=== PATIENT | male | born 1955 | race Hispanic/Latino ===

== ENCOUNTER 2024-06-19 14:30 | Observation (INO) | payer MEDICARE ==
[~2024-06-19] VITALS: Ht 162.6 cm; Wt 81.2 kg
[2024-06-19 15:07] VITALS: TEMP 97.9
[2024-06-19] MEDS ORDERED: SODIUM CHLORIDE FLUSH 10 ML SYR IV PRN (15:15)
[2024-06-19 15:24] LABS: BASOPHILS % 0.3 % (0.0-1.0); EOSINOPHILS % 0.6 % (0.0-6.0); HEMATOCRIT 41.8 % (38.2-49.6); HEMOGLOBIN 14.4 g/dL (14.0-18.0); LYMPHOCYTES # (AUTO) 1.5 (1.0-3.2); LYMPHOCYTES % 23.8 % (18.0-39.1); MEAN CORPUSCULAR HGB CONC 34.4 g/dL (31-35); MEAN CORPUSCULAR VOLUME 84.3 fL (81-99); MONOCYTES # (AUTO) 0.6 (0.2-0.8); MONOCYTES % 9.8 % (4.4-11.3); NEUTROPHILS # (AUTO) 4.1 (2.1-6.9); NEUTROPHILS % 65.2 % (38.7-80.0); PLATELET COUNT 283 x10e3/uL (140-360); RED BLOOD COUNT 4.96 x10e6/uL (4.3-5.7); RED CELL DISTRIBUTION WIDTH 13.7 % (11.7-14.4); WHITE BLOOD COUNT 6.34 x10e3/uL (4.8-10.8)
[2024-06-19 15:41] LABS: INR 0.96; PROTHROMBIN TIME 13.4 seconds (11.9-14.5)
[2024-06-19 15:42] LABS: PARTIAL THROMBOPLASTIN TIME 30.1 seconds (23.8-35.5)
[2024-06-19 15:50] LABS: ALANINE AMINOTRANSFERASE 12 IU/L (0-55); ALBUMIN 3.8 g/dL (3.5-5.0); ALBUMIN/GLOBULIN RATIO 1.3 (0.8-2.0); ALKALINE PHOSPHATASE 78 IU/L (40-150); ANION GAP 16.3 mmol/L (8-16); BILIRUBIN,TOTAL 0.4 mg/dL (0.2-1.2); BLOOD UREA NITROGEN 14 mg/dL (7-26); BUN/CREATININE RATIO 13 (6-25); CALCIUM 9.4 mg/dL (8.4-10.2); CARBON DIOXIDE 20 mmol/L (22-29); CHLORIDE 105 mmol/L (98-107); CREATININE, SERUM 1.06 mg/dL (0.72-1.25); EST GLOMERULAR FILTRATION RATE 76 ML/MIN (>=60); POTASSIUM 4.3 mmol/L (3.5-5.1); SODIUM 137 mmol/L (136-145); TOTAL PROTEIN 6.7 g/dL (6.5-8.1)
[2024-06-19 15:57] LABS: GLUCOSE 470 mg/dL (74-118)
[2024-06-19 15:58] LABS: TROPONIN I < 0.001 ng/mL (0-0.300)
[2024-06-19] MEDS ORDERED: ONDANSETRON HCL INJ 2MG/ML 2ML 2 MG/ML VIAL IV PRN (17:30)
[2024-06-19] MEDS: SODIUM CHLORIDE 0.9% 1000ML 1,000 ML IV ONE (17:36)
[2024-06-19] MEDS: SODIUM CHLORIDE 0.9% 1000ML 1,000 ML IV SCH (17:36)
[2024-06-19 19:17] VITALS: PULSE 65; RESP 18
[2024-06-19 20:06] VITALS: BP 140/69; PULSE 71; RESP 20; TEMP 98.4; O2SAT 96
[2024-06-19] MEDS: INSULIN LISPRO 100 UNIT/1 ML 3ML VIAL SQ SCH (20:59)
[2024-06-19] MEDS ORDERED: DEXTROSE 50% SYRINGE 50 ML IV PRN (21:00)
[2024-06-19 21:53] VITALS: BP 140/69; PULSE 71; RESP 20; TEMP 98.4; O2SAT 96
[2024-06-19] MEDS ORDERED: LISINOPRIL5 MG PO (21:59)
[2024-06-19] MEDS ORDERED: PIOGLITAZONE HC45 MG PO (21:59)
[2024-06-19] MEDS ORDERED: METFORMIN PO (21:59)
[2024-06-19] MEDS ORDERED: ALTOPREV40 MG PO (21:59)
[2024-06-19] MEDS ORDERED: NEURONTIN300 MG PO (21:59)
[2024-06-19] MEDS ORDERED: GLIPIZIDE PO (21:59)
[2024-06-20] VITALS (7 sets, daily range): BP systolic 133–152; BP diastolic 65–75; PULSE 69–76; RESP 19–20; TEMP 98–98.9; O2SAT 98–100
[2024-06-20 00:43] LABS: TROPONIN I 0.001 ng/mL (0-0.300)
[2024-06-20 05:48] LABS: BASOPHILS % 0.3 % (0.0-1.0); EOSINOPHILS # (AUTO) 0.1 (0.0-0.4); EOSINOPHILS % 1.5 % (0.0-6.0); HEMATOCRIT 40.9 % (38.2-49.6); LYMPHOCYTES # (AUTO) 1.7 (1.0-3.2); LYMPHOCYTES % 23.9 % (18.0-39.1); MEAN CORPUSCULAR HEMOGLOBIN 29.3 pg (28-32); MEAN CORPUSCULAR HGB CONC 34.2 g/dL (31-35); MEAN CORPUSCULAR VOLUME 85.6 fL (81-99); MONOCYTES # (AUTO) 0.8 (0.2-0.8); MONOCYTES % 10.6 % (4.4-11.3); NEUTROPHILS # (AUTO) 4.5 (2.1-6.9); NEUTROPHILS % 63.3 % (38.7-80.0); PLATELET COUNT 275 x10e3/uL (140-360); RED BLOOD COUNT 4.78 x10e6/uL (4.3-5.7); RED CELL DISTRIBUTION WIDTH 13.7 % (11.7-14.4); WHITE BLOOD COUNT 7.15 x10e3/uL (4.8-10.8)
[2024-06-20 06:32] LABS: ALBUMIN 3.3 g/dL (3.5-5.0); ALBUMIN/GLOBULIN RATIO 1.2 (0.8-2.0); ANION GAP 10.5 mmol/L (8-16); BILIRUBIN,TOTAL 0.4 mg/dL (0.2-1.2); CALCIUM 8.6 mg/dL (8.4-10.2); CREATININE, SERUM 0.82 mg/dL (0.72-1.25); POTASSIUM 4.5 mmol/L (3.5-5.1)
[2024-06-20 06:47] LABS: CREATINE KINASE 119 IU/L (30-200)
[2024-06-20 06:59] LABS: TROPONIN I < 0.001 ng/mL (0-0.300)
[2024-06-20 08:53] LABS: CHOL/HDL RATIO 3.5 (3.9-4.7)
[2024-06-20] MEDS: GABAPENTIN 300 MG CAP PO SCH (09:12)
[2024-06-20] MEDS: PIOGLITAZONE HCL 45 MG TAB PO SCH (09:12)
[2024-06-20] MEDS: LISINOPRIL 2.5 MG TAB PO SCH (09:12)
[2024-06-20] MEDS: SIMVASTATIN 20 MG TAB PO SCH (20:53)
[2024-06-20] MEDS: ACETAMINOPHEN 325 MG TAB PO PRN (20:54)
[2024-06-21] VITALS: BP 129/68; PULSE 68; RESP 20; TEMP 98.7; O2SAT 100
[2024-06-21 04:00] VITALS: BP 167/99; PULSE 65; RESP 20; TEMP 98; O2SAT 100
[2024-06-21 08:00] VITALS: BP 157/62; PULSE 65; RESP 20; TEMP 98; O2SAT 100
[2024-06-21 08:05] VITALS: BP 157/72; PULSE 68; RESP 21; TEMP 97.9; O2SAT 96
[2024-06-21 11:34] VITALS: BP 160/75; PULSE 83; RESP 17; TEMP 97.9; O2SAT 100
[2024-06-21 15:30] VITALS: BP 152/74; PULSE 98; RESP 18; TEMP 97.9; O2SAT 98
[2024-06-21] MEDS ORDERED: LISINOPRIL10 MG PO (17:09)
== END 2024-06-21 17:58 | disposition home or self-care (01) ==
LOC: ER 15:12 → ERHOLD 17:20 → MED/SURG2 20:32
PROVIDERS: ADMIT Internal Medicine; ATTEND Internal Medicine
DX: E11.65 Type 2 diabetes mellitus with hyperglycemia (principal); Z79.84 Long term (current) use of oral hypoglycemic drugs; I10 Essential (primary) hypertension; R42 Dizziness and giddiness; M54.2 Cervicalgia
CPT/HCPCS: 36415 ×3; 70450; 71046; 80053 ×2; 80061; 82550 ×2; 82948 ×3; 83036; 83880; 84484 ×2; 85025 ×2; 85610; 85730; 93005 ×2; 99284; G0378 ×3; J7030 ×3

== ENCOUNTER → 2024-07-06 | Outpatient (REF) | payer MEDICARE ==
[~2024-07-06] MED LIST: ALTOPREV40 MG PO; GLIPIZIDE PO; LISINOPRIL10 MG PO; LISINOPRIL5 MG PO; METFORMIN PO; NEURONTIN300 MG PO; PIOGLITAZONE HC45 MG PO
== END ==
LOC: US 14:40
PROVIDERS: ATTEND Urology
DX: N50.82 Scrotal pain (principal); N43.3 Hydrocele, unspecified
CPT/HCPCS: 76870; 93976

== ENCOUNTER → 2024-07-12 | Outpatient (REF) | payer MEDICARE ==
[~2024-07-12] MED LIST changes: +IOPAMIDOL 370 MG/ML 100 ML INFUS..BTL INJ ONE
[2024-07-12 14:11] LABS: CREATININE, SERUM 0.88 mg/dL (0.72-1.25)
== END ==
LOC: CT 12:57
PROVIDERS: ATTEND Urology
DX: N50.82 Scrotal pain (principal); N43.3 Hydrocele, unspecified
CPT/HCPCS: 36415; 74177; 82565; 84520; Q9967

== ENCOUNTER 2024-07-30 16:33 | Inpatient (IN) | payer MEDICARE ==
[~2024-07-30] VITALS: Ht 165.1 cm; Wt 104.8 kg
[~2024-07-30 16:33] MED LIST changes: -IOPAMIDOL 370 MG/ML 100 ML INFUS..BTL INJ ONE
[2024-07-30] MEDS ORDERED: ONDANSETRON HCL INJ 2MG/ML 2ML 2 MG/ML VIAL IV STA (17:02)
[2024-07-30 17:27] LABS: BASOPHILS % 0.3 % (0.0-1.0); EOSINOPHILS # (AUTO) 0.1 (0.0-0.4); EOSINOPHILS % 0.8 % (0.0-6.0); HEMATOCRIT 45.5 % (38.2-49.6); HEMOGLOBIN 15.8 g/dL (14.0-18.0); LYMPHOCYTES # (AUTO) 1.4 (1.0-3.2); LYMPHOCYTES % 21.4 % (18.0-39.1); MEAN CORPUSCULAR HEMOGLOBIN 29.5 pg (28-32); MEAN CORPUSCULAR HGB CONC 34.7 g/dL (31-35); MONOCYTES # (AUTO) 0.5 (0.2-0.8); MONOCYTES % 7.8 % (4.4-11.3); NEUTROPHILS # (AUTO) 4.4 (2.1-6.9); NEUTROPHILS % 69.4 % (38.7-80.0); PLATELET COUNT 293 x10e3/uL (140-360); RED BLOOD COUNT 5.35 x10e6/uL (4.3-5.7); RED CELL DISTRIBUTION WIDTH 13.9 % (11.7-14.4); WHITE BLOOD COUNT 6.32 x10e3/uL (4.8-10.8)
[2024-07-30 17:41] LABS: BILIRUBIN,URINE NEGATIVE (NEGATIVE); CLARITY,URINE CLEAR (CLEAR); COLOR,URINE YELLOW (YELLOW); GLUCOSE, URINE 500 (NEGATIVE); KETONES,URINE 1+ (NEGATIVE); LEUKOCYTE ESTERASE ,URINE NEGATIVE (NEGATIVE); NITRITE,URINE NEGATIVE (NEGATIVE); PH,URINE 5.5 (5 - 7); PROTEIN,URINE DIPSTICK NEGATIVE (NEGATIVE); URINE UROBILINOGEN 0.2 mg/dL (0.2 - 1)
[2024-07-30 17:49] LABS: ALBUMIN/GLOBULIN RATIO 1.1 (0.8-2.0); ANION GAP 19.2 mmol/L (8-16); BILIRUBIN,TOTAL 0.4 mg/dL (0.2-1.2); CALCIUM 9.3 mg/dL (8.4-10.2); CREATINE KINASE 64 IU/L (30-200); CREATININE, SERUM 1.22 mg/dL (0.72-1.25); LIPASE 45 U/L (8-78); POTASSIUM 4.2 mmol/L (3.5-5.1); TOTAL PROTEIN 7.6 g/dL (6.5-8.1)
[2024-07-30] MEDS: ACETAMINOPHEN 325 MG TAB PO STA (17:55)
[2024-07-30] MEDS: ONDANSETRON HCL INJ 2MG/ML 2ML 2 MG/ML VIAL IV STA (17:56)
[2024-07-30] MEDS: SODIUM CHLORIDE 0.9% 1000ML 1,000 ML IV STA ×2 (17:56)
[2024-07-30] MEDS: Morphine 4mg INJECTION 4 MG/ML INJ IV STA (17:57)
[2024-07-30 17:59] LABS: RBC,URINE 0-5 /HPF (0-5); WBC,URINE (MAN) 0-5 /HPF (0-5)
[2024-07-30] MEDS ORDERED: IOPAMIDOL 370 MG/ML 100 ML INFUS..BTL INJ ONE (17:59)
[2024-07-30 18:00] LABS: BACTERIA,URINE FEW /HPF; EPITHELIAL CELLS,URINE FEW /LPF
[2024-07-30 18:04] LABS: OTHER CRYSTALS,URINE PRESENT
[2024-07-30 18:05] LABS: TROPONIN I < 0.001 ng/mL (0-0.300)
[2024-07-30 19:08] LABS: ABG HCO3 19 mmol/L (22-26); ABG PCO2 35 mmHg (35-45); ABG PH 7.36 (7.35-7.45); ABG PO2 88 mmHg (80-105); ABG TCO2 20
[2024-07-30] MEDS: SODIUM CHLORIDE 0.9% 1000ML 1,000 ML IV SCH (19:30)
[2024-07-30] MEDS ORDERED: DEXTROSE 50% SYRINGE 50 ML IV PRN (19:30)
[2024-07-30] MEDS ORDERED: Morphine 2mg Syringe 2 MG/ML SYR IV PRN (19:30)
[2024-07-30] MEDS ORDERED: ONDANSETRON HCL INJ 2MG/ML 2ML 2 MG/ML VIAL IV PRN (19:30)
[2024-07-30 20:09] LABS: TROPONIN I 0.004 ng/mL (0-0.300)
[2024-07-30] MEDS: INSULIN REGULAR, HUMAN 100 UNIT/1 ML IV STA (20:27)
[2024-07-30 20:31] VITALS: PULSE 90; RESP 15; TEMP 98.3
[2024-07-30] MEDS: INSULIN REGULAR, HUMAN 100 UNIT/1 ML SQ SCH (21:00)
[2024-07-30 23:00] VITALS: BP 147/85; PULSE 72; RESP 21; TEMP 98; O2SAT 100
[2024-07-30 23:30] VITALS: BP 147/85; PULSE 72; RESP 21; TEMP 98; O2SAT 100
[2024-07-31] VITALS (8 sets, daily range): BP systolic 122–151; BP diastolic 68–80; PULSE 68–79; RESP 16–18; TEMP 97.9–98.8; O2SAT 96–100
[2024-07-31] MEDS: ACETAMINOPHEN 325 MG TAB ONE (00:38)
[2024-07-31 05:42] LABS: BASOPHILS % 0.3 % (0.0-1.0); EOSINOPHILS # (AUTO) 0.2 (0.0-0.4); EOSINOPHILS % 2.3 % (0.0-6.0); HEMATOCRIT 39.4 % (38.2-49.6); HEMOGLOBIN 13.5 g/dL (14.0-18.0); LYMPHOCYTES # (AUTO) 1.6 (1.0-3.2); LYMPHOCYTES % 24.8 % (18.0-39.1); MEAN CORPUSCULAR HEMOGLOBIN 29.5 pg (28-32); MEAN CORPUSCULAR HGB CONC 34.3 g/dL (31-35); MONOCYTES # (AUTO) 0.7 (0.2-0.8); MONOCYTES % 10.6 % (4.4-11.3); NEUTROPHILS # (AUTO) 3.9 (2.1-6.9); NEUTROPHILS % 61.7 % (38.7-80.0); PLATELET COUNT 261 x10e3/uL (140-360); RED BLOOD COUNT 4.58 x10e6/uL (4.3-5.7)
[2024-07-31 06:13] LABS: ALBUMIN 3.3 g/dL (3.5-5.0); ALBUMIN/GLOBULIN RATIO 1.2 (0.8-2.0); ANION GAP 11.5 mmol/L (8-16); BILIRUBIN,TOTAL 0.6 mg/dL (0.2-1.2); CALCIUM 8.4 mg/dL (8.4-10.2); CREATININE, SERUM 0.88 mg/dL (0.72-1.25); POTASSIUM 3.5 mmol/L (3.5-5.1)
[2024-07-31 06:41] LABS: ABG HCO3 19 mmol/L (22-26); ABG PCO2 35 mmHg (35-45); ABG PH 7.36 (7.35-7.45); ABG PO2 88 mmHg (80-105); ABG TCO2 20
[2024-07-31 06:45] LABS: TROPONIN I 0.001 ng/mL (0-0.300)
[2024-07-31 07:03] LABS: CHOL/HDL RATIO 4.2 (3.9-4.7)
[2024-07-31] MEDS: GABAPENTIN 300 MG CAP PO SCH (09:12)
[2024-07-31] MEDS: LISINOPRIL 10 MG TAB PO SCH (09:13)
[2024-07-31] MEDS: PIOGLITAZONE HCL 45 MG TAB PO SCH (09:13)
[2024-07-31 14:27] LABS: TROPONIN I 0.003 ng/mL (0-0.300)
[2024-07-31 15:12] LABS: FREE T4 (FREE THYROXINE) 1.09 ng/dL (0.8-1.8); THYROID STIMULATING HORMONE 1.7 uIU/mL (0.350-4.940)
[2024-07-31] MEDS: INSULIN LISPRO 100 UNIT/1 ML 3ML VIAL SQ SCH ×2 (17:38→17:39)
[2024-07-31] MEDS: ATORVASTATIN 40 MG TAB PO SCH (22:40)
[2024-07-31] MEDS: INSULIN GLARGINE 100 UNITS/ML VIAL SQ SCH (22:44)
[2024-07-31] MEDS: ACETAMINOPHEN 325 MG TAB PO PRN (23:12)
[2024-08-01 04:00] VITALS: BP 123/69; PULSE 66; RESP 18; TEMP 97.8; O2SAT 100
[2024-08-01 05:25] LABS: BASOPHILS % 0.2 % (0.0-1.0); EOSINOPHILS # (AUTO) 0.1 (0.0-0.4); EOSINOPHILS % 1.7 % (0.0-6.0); HEMATOCRIT 37.3 % (38.2-49.6); HEMOGLOBIN 12.8 g/dL (14.0-18.0); LYMPHOCYTES # (AUTO) 1.7 (1.0-3.2); LYMPHOCYTES % 26.3 % (18.0-39.1); MEAN CORPUSCULAR HEMOGLOBIN 29.6 pg (28-32); MEAN CORPUSCULAR HGB CONC 34.3 g/dL (31-35); MEAN CORPUSCULAR VOLUME 86.1 fL (81-99); MONOCYTES # (AUTO) 0.5 (0.2-0.8); NEUTROPHILS # (AUTO) 4.2 (2.1-6.9); NEUTROPHILS % 63.6 % (38.7-80.0); PLATELET COUNT 245 x10e3/uL (140-360); RED BLOOD COUNT 4.33 x10e6/uL (4.3-5.7); RED CELL DISTRIBUTION WIDTH 14.2 % (11.7-14.4); WHITE BLOOD COUNT 6.62 x10e3/uL (4.8-10.8)
[2024-08-01 06:07] LABS: ANION GAP 12.6 mmol/L (8-16); CALCIUM 8.1 mg/dL (8.4-10.2); CREATININE, SERUM 0.78 mg/dL (0.72-1.25); POTASSIUM 4.6 mmol/L (3.5-5.1)
[2024-08-01 07:46] VITALS: BP 138/71; PULSE 73; RESP 18; TEMP 98.2; O2SAT 100
[2024-08-01 07:58] VITALS: BP 123/69
[2024-08-01] MEDS ORDERED: ONDANSETRON HCL 4 MG ORAL DISINTEGRATING TAB PO PRN (14:00)
== END 2024-08-01 15:05 | disposition home or self-care (01) | DRG 638 ==
LOC: ER 16:43 → ERHOLD 19:24 → MED/SURG 23:00 → OBSVTOIN 07-31 09:59
PROVIDERS: ADMIT Internal Medicine; ATTEND Internal Medicine
PROC: 4A133R1 Monitoring of Arterial Saturation, Peripheral, Percutaneous Approach (ICD-10-PCS; principal; 2024-07-31)
DX: E11.10 Type 2 diabetes mellitus with ketoacidosis without coma (principal); N17.9 Acute kidney failure, unspecified; R53.81 Other malaise; I10 Essential (primary) hypertension; E86.0 Dehydration; E78.5 Hyperlipidemia, unspecified; K52.9 Noninfective gastroenteritis and colitis, unspecified; K76.0 Fatty (change of) liver, not elsewhere classified; N40.0 Benign prostatic hyperplasia without lower urinary tract symptoms; R00.0 Tachycardia, unspecified; E66.3 Overweight; Z68.38 Body mass index [BMI] 38.0-38.9, adult; Z79.84 Long term (current) use of oral hypoglycemic drugs; Z90.49 Acquired absence of other specified parts of digestive tract
CPT/HCPCS: 36415; 36600; 74177; 76536; 80048; 80053; 80061; 81001; 82550; 82805; 82948; 83036; 83605; 83690; 84439; 84443; 84481; 84484; 85025; 87040; 87086; 93005; 94799; 99284; G0378; J1815; J2270; J2405; J2543; J7030; Q9967

== ENCOUNTER → 2024-08-30 | Day surgery (SDC) | payer MEDICARE ==
[~2024-08-30] MED LIST changes: +ACETAMINOPHEN 1000 MG/100 ML 100 ML IV ONE; +DEXAMETHASONE SOD PHOS INJ 4 MG/ML SDV ONE; +FENTANYL CITRATE/PF 100MCG/2 ML INJ ONE; +HUMALOG MI100 UNIT/2 SQ; +LACTATED RINGER'S 1,000 ML ONE; +LIDOCAINE HCL 2% LOCAL INJ 5 ML SDV VIAL INJ ONE; +ONDANSETRON HCL INJ 2MG/ML 2ML 2 MG/ML VIAL ONE; +PROPOFOL IV EMULSION 10 MG/ML 20 ML VIAL ONE; +SEVOFLURANE INHAL SOLN 250 ML PEN BTL ONE; +[UNRECOGNIZED DRUG - OTHER] PO
[2024-08-30] MEDS: CEFAZOLIN SODIUM 2 GM ONE (10:29)
[2024-08-30] MEDS: SODIUM CHLORIDE 0.9% 1000ML 1,000 ML ONE (10:29)
[2024-08-30 10:51] LABS: BASOPHILS % 0.1 % (0.0-1.0); EOSINOPHILS % 0.6 % (0.0-6.0); HEMATOCRIT 43.6 % (38.2-49.6); HEMOGLOBIN 15.2 g/dL (14.0-18.0); LYMPHOCYTES # (AUTO) 1.5 (1.0-3.2); LYMPHOCYTES % 22.1 % (18.0-39.1); MEAN CORPUSCULAR HEMOGLOBIN 29.2 pg (28-32); MEAN CORPUSCULAR HGB CONC 34.9 g/dL (31-35); MEAN CORPUSCULAR VOLUME 83.8 fL (81-99); MONOCYTES # (AUTO) 0.5 (0.2-0.8); MONOCYTES % 7.8 % (4.4-11.3); NEUTROPHILS # (AUTO) 4.6 (2.1-6.9); NEUTROPHILS % 69.1 % (38.7-80.0); PLATELET COUNT 264 x10e3/uL (140-360); RED CELL DISTRIBUTION WIDTH 13.9 % (11.7-14.4); WHITE BLOOD COUNT 6.69 x10e3/uL (4.8-10.8)
[2024-08-30 11:34] LABS: ANION GAP 13.9 mmol/L (8-16); CALCIUM 9.2 mg/dL (8.4-10.2); CREATININE, SERUM 0.78 mg/dL (0.72-1.25); POTASSIUM 3.9 mmol/L (3.5-5.1)
[2024-08-30 15:05] VITALS: BP 149/81; PULSE 76; RESP 18; O2SAT 99
== END | disposition home or self-care (01) ==
LOC: OR 09:59
PROVIDERS: ATTEND Urology
DX: N45.3 Epididymo-orchitis (principal); E11.9 Type 2 diabetes mellitus without complications; I10 Essential (primary) hypertension; E78.5 Hyperlipidemia, unspecified; E66.9 Obesity, unspecified; Z79.84 Long term (current) use of oral hypoglycemic drugs; Z79.4 Long term (current) use of insulin; Z79.899 Other long term (current) drug therapy; Z68.30 Body mass index [BMI] 30.0-30.9, adult
CPT/HCPCS: 36415; 54520; 71046; 80048; 82948; 85025; 88305; 93005; J0131; J1100; J2003; J2405; J2704; J3010; J7030; J7121; 88304

== ENCOUNTER 2024-11-20 05:11 | Inpatient (IN) | payer MEDICARE ==
[2024-11-17 09:36] LABS: BASOPHILS % 0.2 % (0.0-1.0); EOSINOPHILS % 0.8 % (0.0-6.0); LYMPHOCYTES % 27.5 % (18.0-39.1); MONOCYTES % 8.3 % (4.4-11.3); NEUTROPHILS % 62.9 % (38.7-80.0); RED CELL DISTRIBUTION WIDTH 13.9 % (11.7-14.4)
[2024-11-17 10:13] LABS: EST GLOMERULAR FILTRATION RATE 96.0 ML/MIN (>=60)
[2024-11-20] VITALS (7 sets, daily range): BP systolic 131–134; BP diastolic 69–77; PULSE 65–108; RESP 17–20; TEMP 97.3–98.1; O2SAT 96–98
[~2024-11-20] VITALS: Ht 162.6 cm; Wt 84.4 kg
[~2024-11-20 05:11] MED LIST changes: -ACETAMINOPHEN 1000 MG/100 ML 100 ML IV ONE; -DEXAMETHASONE SOD PHOS INJ 4 MG/ML SDV ONE; -FENTANYL CITRATE/PF 100MCG/2 ML INJ ONE; -LACTATED RINGER'S 1,000 ML ONE; -LIDOCAINE HCL 2% LOCAL INJ 5 ML SDV VIAL INJ ONE; -ONDANSETRON HCL INJ 2MG/ML 2ML 2 MG/ML VIAL ONE; -PROPOFOL IV EMULSION 10 MG/ML 20 ML VIAL ONE; -SEVOFLURANE INHAL SOLN 250 ML PEN BTL ONE
[2024-11-20] MEDS: CEFTRIAXONE 1 GM VIAL ONE (06:18)
[2024-11-20] MEDS: GENTAMICIN 80MG/NS 100 ML 200 ML IV ONE (06:19)
[2024-11-20] MEDS: SODIUM CHLORIDE 0.9% 1000ML 1,000 ML ONE (06:20)
[2024-11-20] MEDS ORDERED: LIDOCAINE HCL 2% LOCAL INJ 5 ML SDV VIAL INJ ONE (06:53)
[2024-11-20] MEDS ORDERED: SEVOFLURANE INHAL SOLN 250 ML PEN BTL ONE (06:53)
[2024-11-20] MEDS ORDERED: PROPOFOL IV EMULSION 10 MG/ML 20 ML VIAL ONE (06:53)
[2024-11-20] MEDS ORDERED: ACETAMINOPHEN 1000 MG/100 ML 100 ML IV ONE (06:53)
[2024-11-20] MEDS ORDERED: FENTANYL CITRATE/PF 100MCG/2 ML INJ ONE (06:53)
[2024-11-20] MEDS ORDERED: EPHEDRINE SULFATE INJ 50 MG/ML VIAL ONE (08:16)
[2024-11-20] MEDS ORDERED: DIPHENHYDRAMINE HCL 25 MG CAP PO PRN (09:15)
[2024-11-20] MEDS ORDERED: ONDANSETRON HCL INJ 2MG/ML 2ML 2 MG/ML VIAL IV PRN (09:15)
[2024-11-20] MEDS ORDERED: ACETAMINOPHEN 1000 MG/100 ML IV PRN (09:15)
[2024-11-20] MEDS: FENTANYL CITRATE/PF 100MCG/2 ML INJ IV ONE (09:30)
[2024-11-20 09:52] LABS: BASOPHILS % 0.2 % (0.0-1.0); EOSINOPHILS % 0.4 % (0.0-6.0); LYMPHOCYTES % 11.6 % (18.0-39.1); MONOCYTES % 3.1 % (4.4-11.3); NEUTROPHILS % 84.2 % (38.7-80.0); RED CELL DISTRIBUTION WIDTH 14.1 % (11.7-14.4)
[2024-11-20 10:26] LABS: EST GLOMERULAR FILTRATION RATE 97.0 ML/MIN (>=60)
[2024-11-20] MEDS: FENTANYL CITRATE/PF 100MCG/2 ML INJ ONE (11:07)
[2024-11-20] MEDS: SODIUM CHLORIDE 0.9% 1000ML 1,000 ML IV SCH (11:21)
[2024-11-20] MEDS: PHENAZOPYRIDINE HCL 100 MG TAB PO PRN (11:21)
[2024-11-20] MEDS ORDERED: DEXTROSE 50% SYRINGE 50 ML IV PRN (14:45)
[2024-11-20] MEDS: INSULIN LISPRO 100 UNIT/1 ML 3ML VIAL SQ SCH (17:53)
[2024-11-20] MEDS: SENNA-S TABLET PO SCH (17:54)
[2024-11-20] MEDS: ACETAMINOPHEN/CODEINE 300MG - 30MG TAB PO PRN (22:21)
[2024-11-21] VITALS (10 sets, daily range): BP systolic 115–139; BP diastolic 61–67; PULSE 71–80; RESP 13–20; TEMP 98–99; O2SAT 94–100
[2024-11-21 05:39] LABS: BASOPHILS % 0.1 % (0.0-1.0); EOSINOPHILS % 0.1 % (0.0-6.0); LYMPHOCYTES % 14.1 % (18.0-39.1); MONOCYTES % 8.6 % (4.4-11.3); NEUTROPHILS % 76.8 % (38.7-80.0); RED CELL DISTRIBUTION WIDTH 14.0 % (11.7-14.4)
[2024-11-21 06:31] LABS: EST GLOMERULAR FILTRATION RATE 98.0 ML/MIN (>=60)
[2024-11-21] MEDS: INSULIN GLARGINE 100 UNITS/ML VIAL SQ SCH (22:13)
[2024-11-22] VITALS (9 sets, daily range): BP systolic 125–143; BP diastolic 61–74; PULSE 69–87; RESP 16–20; TEMP 97.2–99.3; O2SAT 96–100
[2024-11-22 05:14] LABS: BASOPHILS % 0.2 % (0.0-1.0); EOSINOPHILS % 1.6 % (0.0-6.0); LYMPHOCYTES % 23.1 % (18.0-39.1); MONOCYTES % 10.8 % (4.4-11.3); NEUTROPHILS % 64.1 % (38.7-80.0); RED CELL DISTRIBUTION WIDTH 14.2 % (11.7-14.4)
[2024-11-22 05:42] LABS: EST GLOMERULAR FILTRATION RATE 100.0 ML/MIN (>=60)
[2024-11-23] VITALS (11 sets, daily range): BP systolic 131–152; BP diastolic 64–81; PULSE 71–92; RESP 16–20; TEMP 97.2–99; O2SAT 97–100
[2024-11-23 05:14] LABS: RED CELL DISTRIBUTION WIDTH 14.0 % (11.7-14.4)
[2024-11-23 05:15] LABS: BASOPHILS % 0.2 % (0.0-1.0); EOSINOPHILS % 1.1 % (0.0-6.0); LYMPHOCYTES % 21.1 % (18.0-39.1); MONOCYTES % 9.8 % (4.4-11.3); NEUTROPHILS % 67.4 % (38.7-80.0)
[2024-11-23 05:41] LABS: EST GLOMERULAR FILTRATION RATE 97.0 ML/MIN (>=60)
[2024-11-24] VITALS (8 sets, daily range): BP systolic 123–146; BP diastolic 65–70; PULSE 77–90; RESP 15–18; TEMP 97.8–99.8; O2SAT 96–100
[2024-11-24 05:50] LABS: BASOPHILS % 0.1 % (0.0-1.0); EOSINOPHILS % 1.1 % (0.0-6.0); LYMPHOCYTES % 13.9 % (18.0-39.1); MONOCYTES % 9.7 % (4.4-11.3); NEUTROPHILS % 74.8 % (38.7-80.0); RED CELL DISTRIBUTION WIDTH 13.9 % (11.7-14.4)
[2024-11-24 06:26] LABS: EST GLOMERULAR FILTRATION RATE 101.0 ML/MIN (>=60)
[2024-11-25 05:01] VITALS: BP 120/72; PULSE 78; RESP 18; TEMP 98.2; O2SAT 100
[2024-11-25 08:00] VITALS: BP 120/72; PULSE 78; RESP 18; TEMP 98.2; O2SAT 100
[2024-11-25 09:00] VITALS: BP 135/67; PULSE 87; RESP 20; TEMP 99; O2SAT 96
[2024-11-25] MEDS ORDERED: LEVOFLOXACIN250 MG PO (09:05)
[2024-11-25 10:15] VITALS: PULSE 88; RESP 18; O2SAT 95
== END 2024-11-25 13:33 | disposition home or self-care (01) | DRG 713 ==
LOC: OR 05:11 → PACU V 09:10 → MED/SURG 10:05
PROVIDERS: ADMIT Internal Medicine; ATTEND Internal Medicine
PROC: BT141ZZ Fluoroscopy of Kidneys, Ureters and Bladder using Low Osmolar Contrast (ICD-10-PCS; 2024-11-20)
PROC: BT101ZZ Fluoroscopy of Bladder using Low Osmolar Contrast (ICD-10-PCS; 2024-11-20)
PROC: 0T7D8ZZ Dilation of Urethra, Via Natural or Artificial Opening Endoscopic (ICD-10-PCS; principal; 2024-11-20 07:32)
PROC: 0V508ZZ Destruction of Prostate, Via Natural or Artificial Opening Endoscopic (ICD-10-PCS; 2024-11-20 07:32)
PROC: 3C1ZX8Z Irrigation of Indwelling Device using Irrigating Substance, External Approach (ICD-10-PCS; 2024-11-21)
DX: N40.1 Benign prostatic hyperplasia with lower urinary tract symptoms (principal); N13.8 Other obstructive and reflux uropathy; R39.14 Feeling of incomplete bladder emptying; E66.9 Obesity, unspecified; N35.919 Unspecified urethral stricture, male, unspecified site; N32.89 Other specified disorders of bladder; K76.0 Fatty (change of) liver, not elsewhere classified; I10 Essential (primary) hypertension; N43.3 Hydrocele, unspecified; R33.9 Retention of urine, unspecified; E11.65 Type 2 diabetes mellitus with hyperglycemia; D72.829 Elevated white blood cell count, unspecified; Z68.31 Body mass index [BMI] 31.0-31.9, adult
CPT/HCPCS: 36415; 74420; 80048; 82948; 83735; 85025; 87086; 88305; 94799; C1758; C1769; J0696; J1580; J1815; J2003; J7030

== ENCOUNTER 2024-12-05 16:24 | Emergency (ER) | payer MEDICARE ==
[~2024-12-05] VITALS: Ht 162.6 cm; Wt 84.4 kg
[~2024-12-05 16:24] MED LIST changes: +LEVOFLOXACIN250 MG PO
[2024-12-05 16:47] VITALS: PULSE 84; RESP 18; TEMP 98.5; O2SAT 100
[2024-12-05] MEDS: TRAMADOL HCL 50 MG TAB PO ONE (18:37)
== END 2024-12-05 18:36 | disposition home or self-care (01) ==
LOC: ER 16:59
DX: R33.9 Retention of urine, unspecified (principal); I10 Essential (primary) hypertension; E11.9 Type 2 diabetes mellitus without complications; E78.5 Hyperlipidemia, unspecified; E78.00 Pure hypercholesterolemia, unspecified
CPT/HCPCS: 51700; 87086; 99282

== ENCOUNTER 2024-12-28 15:30 | Emergency (ER) | payer MEDICARE ==
[~2024-12-28] VITALS: Ht 167.6 cm; Wt 86.2 kg
[2024-12-28 15:43] VITALS: TEMP 98.6
[2024-12-28 16:50] VITALS: PULSE 65; RESP 15; O2SAT 100
== END 2024-12-28 16:55 | disposition home or self-care (01) ==
LOC: ER 15:44
DX: Z46.6 Encounter for fitting and adjustment of urinary device (principal); I10 Essential (primary) hypertension; E11.9 Type 2 diabetes mellitus without complications; E78.5 Hyperlipidemia, unspecified; E78.00 Pure hypercholesterolemia, unspecified
CPT/HCPCS: 99282

== ENCOUNTER 2025-01-04 17:48 | Emergency (ER) | payer MEDICARE ==
[~2025-01-04] VITALS: Ht 165.1 cm; Wt 86.2 kg
[2025-01-04 19:14] VITALS: PULSE 74; RESP 18; TEMP 98.4
[2025-01-04 19:33] LABS: BASOPHILS % 0.2 % (0.0-1.0); EOSINOPHILS % 3.9 % (0.0-6.0); LYMPHOCYTES % 24.1 % (18.0-39.1); MONOCYTES % 9.0 % (4.4-11.3); NEUTROPHILS % 62.3 % (38.7-80.0); RED CELL DISTRIBUTION WIDTH 13.6 % (11.7-14.4)
[2025-01-04 19:47] LABS: EST GLOMERULAR FILTRATION RATE 100.0 ML/MIN (>=60)
[2025-01-04] MEDS ORDERED: IOPAMIDOL 370 MG/ML 100 ML INFUS..BTL INJ ONE (22:24)
[2025-01-05] MEDS ORDERED: PANTOPRAZOLE SO40 MG PO (00:43)
[2025-01-05 01:06] VITALS: BP 126/59; PULSE 67; RESP 18; TEMP 98.3; O2SAT 99
== END 2025-01-05 01:05 | disposition home or self-care (01) ==
LOC: ER 19:21
DX: R10.10 Upper abdominal pain, unspecified (principal); K59.00 Constipation, unspecified; I10 Essential (primary) hypertension; E11.65 Type 2 diabetes mellitus with hyperglycemia; E78.5 Hyperlipidemia, unspecified; E78.00 Pure hypercholesterolemia, unspecified; R94.31 Abnormal electrocardiogram [ECG] [EKG]
CPT/HCPCS: 36415; 74018; 74177; 76705; 80053; 83690; 84484; 85025; 93005; 99284; J2470; Q9967

== ENCOUNTER 2025-01-24 19:57 | Emergency (ER) | payer MEDICARE ==
[~2025-01-24] VITALS: Ht 165.1 cm; Wt 81.6 kg
[~2025-01-24 19:57] MED LIST changes: +PANTOPRAZOLE SO40 MG PO
[2025-01-24 20:35] VITALS: TEMP 98.7
[2025-01-24 20:52] LABS: LEUKOCYTE ESTERASE ,URINE SMALL (NEGATIVE); PROTEIN,URINE DIPSTICK 2+ (NEGATIVE); URINE UROBILINOGEN 0.2 mg/dL (0.2 - 1)
[2025-01-24 21:04] LABS: BASOPHILS % 0.3 % (0.0-1.0); EOSINOPHILS % 1.4 % (0.0-6.0); LYMPHOCYTES % 22.0 % (18.0-39.1); MONOCYTES % 8.2 % (4.4-11.3); NEUTROPHILS % 67.4 % (38.7-80.0); RED CELL DISTRIBUTION WIDTH 13.5 % (11.7-14.4)
[2025-01-24 21:13] LABS: EST GLOMERULAR FILTRATION RATE 99.0 ML/MIN (>=60)
[2025-01-24 21:17] LABS: WBC,URINE (MAN) >50 /HPF (0-5)
[2025-01-24] MEDS ORDERED: IOPAMIDOL 370 MG/ML 100 ML INFUS..BTL INJ ONE (21:31)
[2025-01-24] MEDS: SODIUM CHLORIDE 0.9% 1000ML 1,000 ML IV STA (22:44)
[2025-01-24 23:43] VITALS: PULSE 73; RESP 16
[2025-01-24] MEDS ORDERED: AMOX TR-K CLV1 EAC2 PO (23:51)
[2025-01-24 23:57] VITALS: BP 146/71; PULSE 76; RESP 15; TEMP 98.7; O2SAT 100
== END 2025-01-25 00:03 | disposition home or self-care (01) ==
LOC: ER 20:12
DX: R10.31 Right lower quadrant pain (principal); N30.91 Cystitis, unspecified with hematuria; I86.1 Scrotal varices; I10 Essential (primary) hypertension; E11.65 Type 2 diabetes mellitus with hyperglycemia; E78.5 Hyperlipidemia, unspecified; E78.00 Pure hypercholesterolemia, unspecified
CPT/HCPCS: 36415; 74177; 80053; 81001; 83690; 85025; 87086; 87186; 99284; J7030; Q9967

== ENCOUNTER → 2025-02-01 | Outpatient (REF) | payer MEDICARE ==
[~2025-02-01] MED LIST changes: +AMOX TR-K CLV1 EAC2 PO
== END ==
LOC: RAD 09:54
PROVIDERS: ATTEND Internal Medicine Rheumatology
DX: M25.562 Pain in left knee (principal); M25.561 Pain in right knee; M47.816 Spondylosis without myelopathy or radiculopathy, lumbar region
CPT/HCPCS: 72100; 72200